=== PATIENT | female | born 1975 | race Caucasian/White ===

== ENCOUNTER → 2018-10-07 | Outpatient (CLI) | payer OTHER ==
--- NOTE | 2018-10-08 15:58 | RAD ---
EXAM DESCRIPTION: Abdomen Series: CR/DR/XR. CLINICAL HISTORY: LOWER ABD PAIN COMPARISON: None TECHNIQUE: 3 VIEWS. AP chest, upright abdomen , supine abdomen and pelvis FINDINGS: No abnormalities in the lung bases. No pleural effusion. No free intraperitoneal air. Moderate amount of fecal matter in the proximal and mid colon. No air-fluid levels. No abnormal radiodense objects overlying the soft tissues. Surgical clips right upper quadrant. IMPRESSION: No free air. No abnormalities in the lung bases. Moderate amount of fecal matter in the proximal colon. No air-fluid levels. Electronically signed by: Mohan Whitney MD 10/08/2018 3:56 PM [facility]
--- NOTE | 2018-10-08 16:20 | US ---
EXAM DESCRIPTION: Abdomen,Complete: Ultrasound. CLINICAL HISTORY: LOWER ABD PAIN COMPARISON: None Available. TECHNIQUE: Transabdominal scannin-dimensional and Doppler modes. FINDINGS: Gallbladder: Surgically absent. No fluid in the gallbladder fossa. Nontender with transducer pressure. Common bile duct: Normal caliber, 5.5 mm. Liver: Normal echogenicity. Long axis of the right lobe is 14.3 cm. Normal ducts. Portal vein is hepatopedal flow and normal caliber. Smooth capsule with no ascites. Pancreas: Normal size and echogenicity. Pancreatic duct not seen.. Abdominal aorta: Normal caliber from the proximal segment to the distal bifurcation. IVC: visualized; normal caliber. Spleen normal echogenicity; long axis measurement is 9.9 cm. Right kidney: 11.1 cm long axis. Normal cortical thickness and echogenicity. No hydronephrosis or perinephric fluid. Normal vascularity. Left kidney: 11.8 cm long axis. Normal cortical thickness and echogenicity. No hydronephrosis or perinephric fluid. Normal vascularity. IMPRESSION: Normal ultrasound of the abdomen. No ascites. No enlarged organs. Previous cholecystectomy. Electronically signed by: Mohan Whitney MD 10/08/2018 4:19 PM [facility] [employer]
== END ==
LOC: LAB.O 12:16
PROVIDERS: ATTEND Nurse Practitioner Family
DX: R10.30 Lower abdominal pain, unspecified (principal); Z90.49 Acquired absence of other specified parts of digestive tract